=== PATIENT | female | born 1990 | race Caucasian/White ===

== ENCOUNTER 2017-10-14 15:11 | Emergency (ER) | payer OTHER ==
[~2017-10-14] VITALS: Ht 157.5 cm; Wt 89.4 kg
[~2017-10-14 15:11] MED LIST: CIPRO500 MG PO; COLACE100 MG PO; TORADOL10 MG PO
== END 2017-10-14 22:56 | disposition home or self-care (01) ==
LOC: ER 15:11
DX: O20.0 Threatened abortion (principal); Z34.01 Encounter for supervision of normal first pregnancy, first trimester

== ENCOUNTER → 2017-11-29 | Emergency (ER) | payer OTHER ==
[~2017-11-29] VITALS: Ht 154.9 cm; Wt 89.8 kg
[~2017-11-29] MED LIST changes: +PEPCID40 MG PO; +PHENERGAN25 MG PO
== END | disposition home or self-care (01) ==
LOC: ER 22:19
DX: Z34.82 Encounter for supervision of other normal pregnancy, second trimester (principal); K29.60 Other gastritis without bleeding

== ENCOUNTER 2018-01-31 08:24 | Outpatient (CLI) | payer OTHER | END 2018-01-31 08:52 | disposition home or self-care (01) | LOC: SONOGRAMA 08:24 | DX: Z34.80 Encounter for supervision of other normal pregnancy, unspecified trimester (principal) ==

== ENCOUNTER 2018-03-11 10:49 | Outpatient (CLI) | payer OTHER | END 2018-03-11 10:59 | disposition home or self-care (01) | LOC: LAB 10:49 | DX: Z34.80 Encounter for supervision of other normal pregnancy, unspecified trimester (principal) ==

== ENCOUNTER → 2018-04-05 | Emergency (ER) | payer OTHER ==
[~2018-04-05] VITALS: Ht 154.9 cm; Wt 88.9 kg
== END | disposition home or self-care (01) ==
LOC: ER 19:27
DX: J06.9 Acute upper respiratory infection, unspecified (principal)

== ENCOUNTER 2018-05-04 08:38 | Outpatient (CLI) | payer OTHER ==
[~2018-05-04 08:38] MED LIST changes: +IRON18 MG
== END 2018-05-04 09:05 | disposition home or self-care (01) ==
LOC: LAB 08:38
DX: Z34.80 Encounter for supervision of other normal pregnancy, unspecified trimester (principal)

== ENCOUNTER 2018-05-11 12:00 | Inpatient (IN) | payer OTHER ==
[~2018-05-11] VITALS: Ht 154.9 cm; Wt 87.5 kg
[2018-05-11] MEDS ORDERED: AMPICILLIN TRI500 MG PO (15:27)
[2018-05-13] MEDS ORDERED: MAXFE CAPLET1 EACH PO (10:30)
[2018-05-13] MEDS ORDERED: OXYC1TAB9 PO (10:30)
== END 2018-05-13 15:53 | disposition home or self-care, planned readmission (81) | DRG 767 ==
LOC: OB/GYN 14:26 → LDR 14:26 → OB/GYN 19:30 → LDR 05-30 12:00
PROC: 0UQMXZZ Repair Vulva, External Approach (ICD-10-PCS; principal; 2018-05-11)
PROC: 10E0XZZ Delivery of Products of Conception, External Approach (ICD-10-PCS; 2018-05-11)
PROC: 0W8NXZZ Division of Female Perineum, External Approach (ICD-10-PCS; 2018-05-11)
PROC: 4A1HXCZ Monitoring of Products of Conception, Cardiac Rate, External Approach (ICD-10-PCS; 2018-05-11)
PROC: 0UB70ZZ Excision of Bilateral Fallopian Tubes, Open Approach (ICD-10-PCS; 2018-05-12)
DX: O71.82 Other specified trauma to perineum and vulva (principal); Z37.0 Single live birth; Z3A.37 37 weeks gestation of pregnancy; Z30.2 Encounter for sterilization

== ENCOUNTER 2018-11-08 12:00 | Emergency (ER) | payer OTHER ==
[~2018-11-08] VITALS: Ht 154.9 cm; Wt 86.6 kg
[~2018-11-08 12:00] MED LIST changes: +AMPICILLIN TRI500 MG PO; +MAXFE CAPLET1 EACH PO; +OXYC1TAB9 PO
[2018-11-08] MEDS ORDERED: ZITHROMAX500 MG PO (17:16)
== END 2018-11-08 17:24 | disposition home or self-care (01) ==
LOC: ER 12:00
DX: B34.9 Viral infection, unspecified (principal)

== ENCOUNTER 2020-03-11 06:41 | Emergency (ER) | payer OTHER ==
[~2020-03-11] VITALS: Ht 154.9 cm; Wt 88.9 kg
[~2020-03-11 06:41] MED LIST changes: +ZITHROMAX500 MG PO
[2020-03-11] MEDS ORDERED: CLARITIN10 M1 PO (07:23)
== END 2020-03-11 14:22 | disposition home or self-care (01) ==
LOC: ER 06:41
DX: E86.0 Dehydration (principal); N39.0 Urinary tract infection, site not specified; D72.828 Other elevated white blood cell count; Z03.818 Encounter for observation for suspected exposure to other biological agents ruled out; R19.7 Diarrhea, unspecified; R05 Cough; R06.02 Shortness of breath; R51 Headache

== ENCOUNTER → 2020-12-23 15:00 | Outpatient (CLI) | payer OTHER ==
[~2020-12-23 15:00] MED LIST changes: +CLARITIN10 M1 PO
== END | disposition home or self-care (01) ==
LOC: PPH VACUNA 15:00
DX: Z23 Encounter for immunization (principal)

== ENCOUNTER 2021-01-13 09:45 | Outpatient (CLI) | payer OTHER | END 2021-01-13 09:46 | disposition home or self-care (01) | LOC: PPH VACUNA 09:45 | DX: Z23 Encounter for immunization (principal) ==

== ENCOUNTER 2021-12-08 09:42 | Emergency (ER) | payer OTHER ==
[~2021-12-08] VITALS: Ht 154.9 cm; Wt 95.7 kg
[2021-12-08] MEDS ORDERED: LEVOTHYROXINE25 MCG PO (09:56)
== END 2021-12-08 17:17 | disposition home or self-care (01) ==
LOC: ER 09:42
DX: M79.644 Pain in right finger(s) (principal)

== ENCOUNTER 2023-01-19 20:23 | Emergency (ER) | payer OTHER ==
[~2023-01-19] VITALS: Ht 154.9 cm; Wt 93.4 kg
[~2023-01-19 20:23] MED LIST changes: +LEVOTHYROXINE25 MCG PO
[2023-01-20] MEDS ORDERED: MEDROL8 MG PO ×2 (00:30→00:31)
[2023-01-20] MEDS ORDERED: ORASEP SPRAY30 ML MM ×2 (00:31)
[2023-01-20] MEDS ORDERED: ZYNCOF 20-400120 ML PO (00:31)
== END 2023-01-20 00:52 ==
LOC: ER 20:23
DX: J04.0 Acute laryngitis (principal); R11.10 Vomiting, unspecified; E03.8 Other specified hypothyroidism